=== PATIENT | male | born 1990 | race African-American/Black ===

== ENCOUNTER 2022-06-19 21:47 | Emergency (ER) | payer MEDICAID ==
[~2022-06-19] VITALS: Ht 182.9 cm; Wt 109.0 kg
[2022-06-19] MEDS ORDERED: IBUPROFEN 400MG TABLET PO ONE (22:00)
[2022-06-19] MEDS ORDERED: TOPUD PO (22:26)
[2022-06-19 23:01] VITALS: BP 146/74
== END 2022-06-19 23:02 | disposition home or self-care (01) ==
LOC: ER 21:47
DX: M25.521 Pain in right elbow (principal); I10 Essential (primary) hypertension
CPT/HCPCS: 73070; 99283

== ENCOUNTER 2022-12-01 10:12 | Emergency (ER) | payer MEDICAID, OTHER ==
[~2022-12-01] VITALS: Ht 180.3 cm; Wt 113.0 kg
[~2022-12-01 10:12] MED LIST: TOPUD PO
[2022-12-01 10:15] VITALS: TEMP 98.6; O2SAT 98
[2022-12-01 10:30] VITALS: BP 142/87; PULSE 69; RESP 18
[2022-12-01] MEDS ORDERED: IBUPROFEN 400MG TABLET PO ONE (10:30)
[2022-12-01] MEDS ORDERED: IBUP-2028 PO (11:59)
== END 2022-12-01 12:36 | disposition home or self-care (01) ==
LOC: ER 10:44
DX: M54.2 Cervicalgia (principal); J45.909 Unspecified asthma, uncomplicated; I10 Essential (primary) hypertension
CPT/HCPCS: 99284

== ENCOUNTER 2023-02-23 16:33 | Emergency (ER) | payer MEDICAID, OTHER ==
[~2023-02-23] VITALS: Ht 185.4 cm; Wt 103.0 kg
[~2023-02-23 16:33] MED LIST changes: +IBUP-2028 PO
[2023-02-23 16:37] VITALS: BP 163/93; O2SAT 98
[2023-02-23] MEDS ORDERED: IBUPROFEN 400MG TABLET PO ONE (17:15)
[2023-02-23] MEDS ORDERED: CYCLOBENZAPRINE 10MG TABLET PO ONE (17:15)
[2023-02-23] MEDS ORDERED: CYCL10TA21 MT (18:16)
[2023-02-23] MEDS ORDERED: IBUP-2028 MT (18:16)
[2023-02-23 18:54] VITALS: PULSE 88; RESP 16; TEMP 97.9
== END 2023-02-23 18:56 | disposition home or self-care (01) ==
LOC: ER 16:33
DX: M54.50 Low back pain, unspecified (principal); J45.909 Unspecified asthma, uncomplicated; I10 Essential (primary) hypertension
CPT/HCPCS: 72100; 99283

== ENCOUNTER 2023-05-09 16:57 | Emergency (ER) | payer MEDICAID, OTHER ==
[~2023-05-09] VITALS: Ht 182.9 cm; Wt 118.0 kg
[~2023-05-09 16:57] MED LIST changes: +CYCL10TA21 MT; +IBUP-2028 MT
[2023-05-09 17:00] VITALS: O2SAT 100
[2023-05-09] MEDS: DEXAMETHASONE 4MG TABLET PO ONE (18:15)
[2023-05-09] MEDS ORDERED: DEXT30CA6 MT (18:21)
[2023-05-09] MEDS ORDERED: BENZ100C86 MT (18:22)
[2023-05-09 18:49] VITALS: BP 163/91; PULSE 73; RESP 16; TEMP 98.3
== END 2023-05-09 18:57 | disposition home or self-care (01) ==
LOC: ER 16:57
DX: J02.8 Acute pharyngitis due to other specified organisms (principal); J45.909 Unspecified asthma, uncomplicated; I10 Essential (primary) hypertension
CPT/HCPCS: 99283; 71045; J8540